=== PATIENT | female | born 1955 | race Caucasian/White ===

== ENCOUNTER → 2016-10-22 | Outpatient (CLI) | payer BC ==
[2016-10-22 11:51] LABS: Appearance,Urine Clear (Clear); Bilirubin,Urine Negative (Negative); Glucose,Urine (UA) Negative (Negative); Ketones,Urine Negative (Negative); Leukocyte Esterase,Urine Large (Negative); Mucus,Urine Rare /hpf; Nitrite,Urine Negative (Negative); Particle Count 3400; Protein,Urine Negative (Negative); RBC,Urine 4 /hpf (0-5); Specific Gravity,Urine 1.014 (1.001-1.035); Squamous Epithelial Cell,Urine 2 /hpf (0-4); UA Billing (MACRO vs. MICRO) MICRO; Urobilinogen,Urine <2.0 mg/dL (<2.0); WBC,Urine 8 /hpf (0-5)
== END | disposition home or self-care (01) ==
LOC: LABWHC1 10:38
PROVIDERS: ATTEND Internal Medicine Critical Care Medicine
DX: C50.919 Malignant neoplasm of unspecified site of unspecified female breast (principal); J45.909 Unspecified asthma, uncomplicated; N39.0 Urinary tract infection, site not specified
CPT/HCPCS: 81001; 87086

== ENCOUNTER → 2016-10-23 | Outpatient (CLI) | payer BC ==
[2016-10-23 07:37] LABS: Basophils % (A) 1 %; CH 35.3; CHCM 33.3; Eosinophils # (A) 0.1 k/uL (0-0.7); Eosinophils % (A) 2 %; HDW 2.11; HGB 15.1 gm/dL (11.4-16.0); Luc % (Auto) 2; Lymphocytes # (A) 0.7 k/uL (1.0-4.8); Lymphocytes % (A) 12 %; MCV 106.3 fL (80.0-100.0); Macrocytosis Moderate; Mean Platelet Volume 7.2; Monocytes # (A) 0.3 k/uL (0-1.0); Monocytes % (A) 6 %; Neutrophils # (A) 4.3 k/uL (1.3-7.7); Neutrophils % (A) 78 %; RBC 4.43 m/uL (3.80-5.40); RDW 13.2 % (11.5-15.5); WBC 5.6 k/uL (3.8-10.6); WBC (Perox) 5.54
[2016-10-23 08:43] LABS: Hemoglobin A1C 5.6 % (4.2-6.1)
[2016-10-23 08:56] LABS: ALT 30 U/L (9-52); AST 21 U/L (14-36); Alkaline Phosphatase 84 U/L (38-126); Anion Gap 8 mmol/L; Blood Urea Nitrogen 13 mg/dL (7-17); Calcium 9.4 mg/dL (8.4-10.2); Carbon Dioxide 28 mmol/L (22-30); Chloride 106 mmol/L (98-107); Glucose 99 mg/dL (74-99); Non-African American GFR(MDRD) >60 (>60 ml/min/1.73 sqM); Potassium 4.8 mmol/L (3.5-5.1); Sodium 142 mmol/L (137-145); Total Bilirubin 0.4 mg/dL (0.2-1.3); Total Protein 6.6 g/dL (6.3-8.2)
[2016-10-23 13:27] LABS: Cancer Anitgen 153 12.2 U/mL (<35.1)
== END | disposition home or self-care (01) ==
LOC: LABWHC1 06:48
PROVIDERS: ATTEND Internal Medicine Critical Care Medicine
DX: C50.919 Malignant neoplasm of unspecified site of unspecified female breast (principal); J45.909 Unspecified asthma, uncomplicated; N39.0 Urinary tract infection, site not specified
CPT/HCPCS: 36415; 80053; 82306; 83036; 84439; 84443; 85025; 86300

== ENCOUNTER → 2016-10-24 | Outpatient (CLI) | payer BC ==
--- NOTE | 2016-10-24 10:28 | XR ---
EXAMINATION TYPE: XR chest 2V DATE OF EXAM: 10/24/2016 HISTORY: C50.919 breast ca. REFERENCE: Previous study dated 07/05/2013. FINDINGS: The lungs are clear. Pleural spaces are clear. Heart size is normal. Lung volumes are promi nent.. IMPRESSION: PLEASE CORRELATE FOR COPD.
== END | disposition home or self-care (01) ==
LOC: RADXRMAIN 09:44
PROVIDERS: ATTEND Internal Medicine Hematology & Oncology
DX: C50.819 Malignant neoplasm of overlapping sites of unspecified female breast (principal); J45.21 Mild intermittent asthma with (acute) exacerbation
CPT/HCPCS: 71020

== ENCOUNTER → 2017-09-02 | Outpatient (CLI) | payer BC ==
--- NOTE | 2017-09-02 10:19 | XR ---
EXAMINATION TYPE: XR chest 2V DATE OF EXAM: 09/02/2017 COMPARISON: October 24, 2016 HISTORY: Shortness of breath TECHNIQUE: Frontal and lateral views of the chest are obtained. FINDINGS: Scattered senescent parenchymal changes noted. Hyperinflation compatible with COPD. No evidence for infiltrate. No evidence for atelectasis. Heart size is stable. Mediastinal structures are stable and grossly unremarkable. No evidence for hilar prominence. Degenerative changes dorsal spine. IMPRESSION: 1. No evidence for acute pulmonary disease.
== END | disposition home or self-care (01) ==
LOC: RADXRMAIN 09:44
PROVIDERS: ATTEND Internal Medicine Hematology & Oncology
DX: C50.819 Malignant neoplasm of overlapping sites of unspecified female breast (principal); R19.7 Diarrhea, unspecified; J45.21 Mild intermittent asthma with (acute) exacerbation
CPT/HCPCS: 71046

== ENCOUNTER → 2017-11-05 | Outpatient (CLI) | payer BC ==
--- NOTE | 2017-11-05 15:16 | BD ---
EXAMINATION TYPE: Axial Bone Density DATE OF EXAM: 11/05/2017 COMPARISON: NONE CLINICAL HISTORY: 61-year-old female postmenopausal screening without HRT Height: 5 FT 5 IN Weight: 112 FRAX RISK QUESTIONS: History of Fracture in Adulthood: YES Secondary Osteoporosis: 3. Menopause before 45: YES RISK FACTORS HISTORY OF: Hip Fracture (Right/Left): YES When: 02/2017 History of Wrist Fracture: YES When: 1975 Surgery to Spine/Hip(right/left)/Wrist (right/left): LT HIP When: 2017 Family History of Osteoporosis: YES Active: SOMEWHAT Postmenopausal woman: PART HYST AGE 38 MEDICATIONS: Additional Medications: SINGULAIR,PROAIR NEEDED, Additional History: EXAM MEASUREMENTS: Bone mineral densitometry was performed using the [employer] System. Bone mineral density as measured about the Lumbar spine is: ----- L1-L4(G/cm2): 0.963 T Score Values are as follows: ----- L2: -2.4 ----- L3: -2.0 ----- L4: -2.0 ----- L1-L4: -1.8 BASELINE Bone mineral density about the R hip (g/cm2): 0.724 T Score values are as follows: -----R Neck: -2.3 -----R Total: -2.4 BASELINE IMPRESSION: Osteopenia (T Score between -2.5 and -1). Note that measurements approach osteoporosis at the right h ip. There is slightly increased risk of fracture and the patient may be considered for treatment. Re-Screen 2-5 years. NOTE: T-SCORE=SD OF THE YOUNG ADULT MEAN.
== END ==
LOC: RADBDWWP 12:25
PROVIDERS: ATTEND Internal Medicine Hematology & Oncology
DX: C50.819 Malignant neoplasm of overlapping sites of unspecified female breast (principal); M85.80 Other specified disorders of bone density and structure, unspecified site
CPT/HCPCS: 77080

== ENCOUNTER → 2018-01-02 | Outpatient (CLI) | payer BC ==
[2018-01-02 08:01] LABS: HCT 46.1 % (34.0-46.0); HGB 15.4 gm/dL (11.4-16.0); MCH 33.4 pg (25.0-35.0); MCHC 33.5 g/dL (31.0-37.0); MCV 99.7 fL (80.0-100.0); Mean Platelet Volume 6.5; Platelet Count 359 k/uL (150-450); RBC 4.62 m/uL (3.80-5.40); RDW 12.5 % (11.5-15.5); WBC 4.2 k/uL (3.8-10.6)
[2018-01-02 08:08] LABS: ALT 18 U/L (9-52); AST 19 U/L (14-36); Albumin 3.8 g/dL (3.5-5.0); Alkaline Phosphatase 71 U/L (38-126); Anion Gap 6 mmol/L; Blood Urea Nitrogen 13 mg/dL (7-17); Calcium 9.5 mg/dL (8.4-10.2); Carbon Dioxide 28 mmol/L (22-30); Chloride 107 mmol/L (98-107); Glucose 101 mg/dL (74-99); Partial Thromboplastin Time 24.1 sec (22.0-30.0); Potassium 4.6 mmol/L (3.5-5.1); Sodium 141 mmol/L (137-145); Total Bilirubin 0.5 mg/dL (0.2-1.3); Total Protein 6.8 g/dL (6.3-8.2)
[2018-01-02 08:33] LABS: Appearance,Urine Clear (Clear); Bilirubin,Urine Negative (Negative); Blood,Urine Small (Negative); Color,Urine Yellow; Glucose,Urine (UA) Negative (Negative); Ketones,Urine Negative (Negative); Leukocyte Esterase,Urine Negative (Negative); Mucus,Urine Many /hpf; Nitrite,Urine Negative (Negative); PH, Urine 5.5 (5.0-8.0); Protein,Urine Negative (Negative); RBC,Urine 2 /hpf (0-5); Specific Gravity,Urine 1.018 (1.001-1.035); Squamous Epithelial Cell,Urine 1 /hpf (0-4); Urobilinogen,Urine <2.0 mg/dL (<2.0); WBC,Urine 2 /hpf (0-5)
== END | disposition home or self-care (01) ==
LOC: LABPAT 07:18
PROVIDERS: ATTEND Orthopaedic Surgery
DX: Z01.818 Encounter for other preprocedural examination (principal); Z01.812 Encounter for preprocedural laboratory examination
CPT/HCPCS: 36415; 80053; 81001; 85027; 85610; 85730; 87070; 93005

== ENCOUNTER 2018-01-13 05:34 | Inpatient (IN) | payer BC ==
[2018-01-06 08:22] VITALS: BMI 18.2
[~2018-01-13 05:34] MED LIST: ACETAMINOPHEN TAB 500 MG TAB PO ONE; MELOXICAM 7.5 MG TAB PO ONE; TRANEXAMIC ACID 1,000 MG in SODIUM CHLORIDE 0.9% 50 ML IVPB ONE; ceFAZolin IN SWFI 2 GM/20 ML SYRINGE IVP ONE
[2018-01-13] MEDS ORDERED: SCOPOLAMINE 1.5MG/72HR PATCH TRANSDERM ONE (05:38)
[2018-01-13] MEDS ORDERED: DEXAMETHASONE SOD PHOSPHATE 10 MG/ML 1 ML VIAL IV ONE (05:38)
[2018-01-13] MEDS ORDERED: ONDANSETRON 4 MG/2 ML VIAL IVP ONE (05:38)
[2018-01-13] MEDS ORDERED: LIDOCAINE 1% 20 ML VIAL (10MG/ML) FOR IV START INTRADERMA PRN (05:38)
[2018-01-13] MEDS ORDERED: HYDROmorphone 0.5 MG/0.5 ML SYRINGE IVP PRN (05:38)
[2018-01-13] MEDS ORDERED: MIDAZOLAM 2 MG/2 ML VIAL IV PRN (05:38)
[2018-01-13] MEDS: LACTATED RINGERS 1,000 ML IV SCH (06:23)
[2018-01-13] MEDS ORDERED: MIDAZOLAM 2 MG/2 ML VIAL ONE (06:56)
[2018-01-13] MEDS ORDERED: MAGNESIUM HYDROXIDE 2,400 MG/10 ML CUP PO PRN (06:56)
[2018-01-13] MEDS ORDERED: PROPOFOL 10 MG/ML 20 ML VIAL IV ONE (06:56)
[2018-01-13] MEDS ORDERED: HEPARIN SODIUM,PORCINE 10,000 UNIT/ML 1 ML VIAL ONE (06:56)
[2018-01-13] MEDS ORDERED: HYDROmorphone 1 MG/ML 1 ML SYRINGE IVP PRN ×3 (06:56)
[2018-01-13] MEDS ORDERED: fentaNYL (PF) 50 MCG/ML 2 ML AMP ONE (06:56)
[2018-01-13] MEDS ORDERED: NALOXONE 0.4 MG/ML 1 ML VIAL IV PRN (06:56)
[2018-01-13] MEDS ORDERED: HYDROcodone/APAP 5-325MG 1 EACH TAB PO PRN (06:56)
[2018-01-13] MEDS ORDERED: ONDANSETRON 4 MG/2 ML VIAL IVP PRN (06:56)
[2018-01-13] MEDS ORDERED: LIDOCAINE 1% INJ 10MG/ML (20 ML MDV) ONE (06:56)
[2018-01-13] MEDS ORDERED: DIAZEPAM 5 MG TAB PO PRN (06:56)
[2018-01-13] MEDS ORDERED: hydrOXYzine PAMOATE 25 MG CAP PO PRN (06:56)
[2018-01-13] MEDS ORDERED: SODIUM CHLORIDE 0.9% IRRIG 1,000 ML BTL IRRIGATION ONE (06:56)
[2018-01-13] MEDS ORDERED: ceFAZolin 3,000 MG in SODIUM CHLORIDE 0.9% IRRIGATIO 3,000 ML IRRIGATION ONE (07:34)
[2018-01-13] MEDS: ROPIVACAINE 246.25 MG, EPINEPHrine 0.5 MG, KETOROLAC 30 MG, cloNIDine HCL/PF 80 MCG, WA... MISCELLANE ONE ×10 (07:34→08:48)
[2018-01-13] MEDS ORDERED: LACTATED RINGERS 1,000 ML IV ONE (08:55)
[2018-01-13] MEDS ORDERED: RIVAROXABAN 10 MG TAB PO SCH (09:00)
--- NOTE | 2018-01-13 09:17 | FL ---
EXAMINATION TYPE: FL guidance operating room, XR Hip Limited LT DATE OF EXAM: 01/13/2018 CLINICAL HISTORY: Left hip back fracture with persistent pain after ORIF TECHNIQUE: Fluoroscopy. Limited intraoperative views left hip. COMPARISON: Pelvic and left hip x-ray November 03, 2017. FINDINGS: Fluoroscopic guidance was provided during total hip replacement with procedure performed leena Villa. A total of 43 seconds of fluoroscopic time was utilized during the procedure and 2 s pot fluoroscopic intraoperative frontal images are acquired. Images are acquired intraoperatively show satisfactory positioning of metallic hip prosthesis from fr ontal projection. IMPRESSION: As Above.
--- NOTE | 2018-01-13 09:33 | XR ---
EXAMINATION TYPE: XR Hip Limited LT DATE OF EXAM: 01/13/2018 CLINICAL HISTORY: Left hip pain and osteoarthritis. TECHNIQUE: Single AP portable view of left hip is obtained immediately postoperatively. COMPARISON: None. FINDINGS: Metallic hardware from left hip arthroplasty is seen and appears satisfactory in alignment and position. There is evidence of recent surgery with subcutaneous gas noted laterally. IMPRESSION: Metallic hardware from left hip arthroplasty is satisfactory in position.
[2018-01-13] MEDS: SODIUM CHLORIDE 0.9% 1,000 ML IV SCH ×2 (10:04→22:18)
[2018-01-13] MEDS ORDERED: ALBUTEROL NEBULIZED 2.5 MG/3 ML INHALATION PRN (10:43)
--- NOTE | 2018-01-13 10:43 | P.CONS ---
History of Present Illness - Reason for Consult Consult date: 01/13/18 Post-op pain - Chief Complaint L hip pain - History of Present Illness The patient is a 62 yo F with a PMH of breast ca s/p chemo and radiation (last session 02/2014), mild intermittent asthma, osteoporosis, and L hip fracture 2017, is s/p L hip total arthroplasty earlier today. She notes she is doing well and that her pain has been adequately controlled thus far and is currently a 3/10 at the L hip. She denied any other active complaints including fever, chills, cough, chest pain, SOB, nausea, vomiting, dizziness, abdominal pain, diarrhea, dysuria, visual changes, or headaches. Review of Systems Pertinent positives and negatives as discussed in HPI, a complete review of systems was performed and all other systems are negative. 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, pneumothorax History of Any Multi-Drug Resistant Organisms: None Reported Past Surgical History: Breast Surgery, Hysterectomy Additional Past Surgical History / Comment(s): bilateral mastectomy, ovarian cysts removed, chest tube, lt hip fx with surgery and 3 screws Past Anesthesia/Blood Transfusion Reactions: No Reported Reaction Smoking Status: Former smoker - Past Family History Father Family Medical History: Pulmonary Embolus Additional Family Medical History / Comment(s): loi PE Mother Family Medical History: Cancer Brother(s) Family Medical History: Cancer Medications and Allergies Home Medications Medication Instructions Recorded Confirmed Type Albuterol Sulfate [Proair Hfa] 1 - 2 puff INHALATION RT-Q6H PRN 11/03/17 History Carboxymethylcellulose Sodium 1 drop BOTH EYES QID PRN 11/03/17 01/13/18 History [Refresh Tears] Montelukast [Singulair] 10 mg PO HS 11/03/17 01/13/18 History Alendronate Sodium [Fosamax] 70 mg PO SA 01/06/18 01/13/18 History Glucosamine Sulfate 500 mg PO HS 01/06/18 01/13/18 History Allergies Allergy/AdvReac Type Severity Reaction Status Date / Time aspirin Allergy GI Verified 01/13/18 10:03 upset/RASH bee venom protein (honey bee) Allergy Unknown Verified 01/13/18 10:03 influenza virus vaccine, Allergy Rash/Hives Verified 01/13/18 10:03 specific [influenza virus vacc,specific] tetracycline Allergy GI Verified 01/13/18 10:03 UPSET/RASH Physical Exam Vitals: Vital Signs Temp Pulse Resp BP Pulse Ox 01/13/18 09:15 66 16 116/56 99 01/13/18 08:57 97.1 F L 75 14 98/49 98 01/13/18 06:10 98.2 F 88 16 145/67 98 Intake and Output 01/12/18 01/13/18 01/13/18 22:59 06:59 14:59 Intake Total 200 901 Output Total 50 Balance 200 851 Intake: IV 200 901 Output: Estimated Blood Loss 50 General: [non toxic], [no distress], [appears at stated age], [normal weight] Derm: [no unusual rashes/lesions] [no unusual ecchymoses], [warm], [dry] Head: [atraumatic], [normocephalic], [symmetric] Eyes: [EOMI], [no lid lag], [anicteric sclera], [pupils equal round reactive to light] ENT: [Nose and ears atraumatic], [no thrush], [no pharyngeal erythema] Neck: [No thyromegaly], [no cervical lymphadenopathy], [trachea midline], [ supple] Mouth: [no lip lesion], [mucus membranes moist] Cardiovascular: [S1S2 reg], [no murmur], [positive posterior tibial pulse bilateral], [no edema], [capillary refill less than 2 seconds] Lungs: [CTA bilateral], [no rhonchi, no rales] , [no accessory muscle use] Abdominal: [soft], [ nontender to palpation], [no guarding], [no appreciable organomegaly], [normal bowel sounds] Ext: [no gross muscle atrophy], [muscle strength 5 out of 5 in all extremities except LLE 3/5 due to pain], [no contractures], Clean dressing over L hip Neuro: [ CN II-XI grossly intact], [light touch intact all 4 extremities], [ finger to nose within normal limits], Psych: [Alert], [oriented], [appropriate affect] Assessment and Plan Assessment: S/p total L hip arthroplasty - Care as per Orthopedic team Post-operative pain - C/w [place] and Dilaudid prn - Bowel regimen - Xarelto for prophylaxis Mild intermittent asthma - C/w Albuterol prn DVT/GI prophy - Xarelto - No indication for GI proph
[2018-01-13] MEDS: ceFAZolin IN SWFI 2 GM/20 ML SYRINGE IVP SCH ×2 (15:52→22:53)
--- NOTE | 2018-01-13 16:08 | P.OP ---
Date of Procedure: 01/13/18 Preoperative Diagnosis: 1. Severe osteoarthritis left hip 2. Status post left hip percutaneous pinning Postoperative Diagnosis: 1. Severe osteoarthritis left hip 2. Status post left hip percutaneous pinning Procedure(s) Performed: 1. Removal of hardware left hip 2. Left total hip arthroplasty with a direct anterior approach Implants: Hung and nephew Polarstem size 4 standard Hung [employer] Nephew R3, 3 hole acetabular shell, 52 mm Hung [employer] Nephew reflection 6.5 mm cancellus screw, 20 mm 2 Hung [employer] Nephew R3, XLPE 20 acetabular liner Hung [employer] Nephew Oxinium femoral head 36 m, +0 All components were press-fit. The articulation is Oxinium on polyethylene. Anesthesia: spinal Surgeon: Haim Villa Truck Chauffeur #1: Candelaria Hilario Estimated Blood Loss (ml): 50 Pathology: other (Femoral head) Condition: stable Disposition: PACU Indications for Procedure: This is a 62-year-old female that had a percutaneous pinning of her left hip for femoral neck fracture while in [place] earlier this year. She subsequently developed significant osteoarthritis of the left hip. After failure of conservative treatment we discussed the surgical and nonsurgical treatment options at length. Patient wishes to proceed with a total hip arthroplasty with a direct anterior approach. Complications specific to this procedure were discussed at length, including but not limited to infection, leg length discrepancy, dislocation, and nerve injury. Patient is aware of all these complications and informed consent was obtained Operative Findings: The operative findings are consistent with severe osteoarthritis of the left hip and retained hardware. Description of Procedure: Patient was seen and evaluated in the preoperative area, consent was reviewed, and the surgical site was marked with a skin marker. Patient was then brought to the operating room and given prophylactic antibiotics intravenously. 1 g of Tranexamic acid was also given. A spinal anesthetic was administered by the anesthesia department. The patient was then placed on the [place] table with the bony prominences well-padded. The hip area was then prepped and draped in usual sterile fashion. A universal timeout was then performed, which confirmed the patient's name, surgical site, ALLERGIES, and procedure being performed. Next the incision site was located at 1 cm distal and 1 cm lateral to the anterior superior iliac spine. The skin and subcutaneous tissues were sharply incised. Incision was carefully dissected down to the fascia overlying the tensor fascia heena muscle. This fascia was then incised in line with the incision. Next, using blunt finger dissection, the tensor fascia heena muscle was dissected off its investing fascia. The muscle was then carefully retracted laterally with a cobra retractor over the lateral neck of the femur. Next, the circumflex vessels were identified and cauterized using the AquaMantis device. The anterior hip capsule was then exposed. The capsule was then opened and an inverted T fashion. Cobra retractors were then placed intracapsularly. The proximal femur was then visualized. The 3 cannulated screws were then located on the lateral aspect of the proximal femur, and were removed with appropriate screwdriver without incident. The femoral neck was then osteotomized appropriate level above the lesser trochanter. Small amount of traction was placed with the [place] table. A small wedge of bone was then removed from the remaining femoral head. Next, using a corkscrew femoral head was easily removed from the acetabulum. On gross visual inspection, the femoral head had complete loss of articular cartilage in multiple periarticular osteophytes. Attention was then turned to the acetabulum. the acetabulum was exposed and any remaining labrum was excised. Sequential reaming of the acetabulum was performed using fluoroscopic guidance. When the appropriate size was reached, a trial was then placed. The position and fit of the trial was checked with fluoroscopy. The trial was then removed. Then, using fluoroscopic guidance, the final implant was impacted at 20 of anteversion and 40 of abduction, and fully seated in the acetabulum. 2 screws were then placed in the acetabulum. Again fluoroscopy was used to check position of the screws. Next, the liner was then impacted, with a 20 elevated liner located in the anterior superior quadrant. Component locking was confirmed. Attention was then directed to the femur. With the aid of the [place] table, the femur was externally rotated to approximately 130, extended, and abducted under the opposite leg. A side hook was then placed under the proximal femur, and the side hook elevator was used to elevate the proximal femur. Retractors were then placed. A capsular release was performed, as well as a release of the conjoined tendon, which afforded excellent visualization of the proximal femur. Next, a box osteotome was used to lateralize the proximal femur. A bench hand was then used to locate the femoral canal. Sequential broaching was then performed with appropriate size which afforded excellent fixation in the proximal femur. A trial was then placed with appropriate head and neck, and the hip was gently reduced with the aid of the [place] table. Fluoroscopy was then used to check position of the components, as well as to ensure equal leg lengths. The hip was then gently dislocated and the trials were then removed. Final implants were then impacted and the hip was again reduced. Final fluoroscopic x-rays confirmed that the components were in anatomic position, as well as equal leg lengths. The hip was also taken through range of motion, and found to be stable. The hip was then copiously irrigated with antibiotic solution with pulsatile lavage. The hip was then irrigated with Irrisept solution. The soft tissues were then injected with a ropivacaine solution, which consisted of 246.25 mg of ropivacaine, 0.5 mg of epinephrine, 30 mg of Toradol, 80 g of clonidine, and 48.45 mL of sterile water, for a total of 100 mL of fluid injected. A second dose of 1 g of Tranexamic acid was also given. the fascia was then closed with 2-0 strata fix suture. The subcutaneous tissue was closed with 3-0 Vicryl. The subcuticular tissue was closed with 3-0 strata fix suture. The skin was then closed with Dermabond glue and a sterile silver dressing. The patient was then transferred to the recovery room in stable condition. The assistant field hockey coach HECTOR Trotter was required due to the complexity of surgery, and the need for skilled certified surgical assistant for positioning, draping, exposure, retraction, and closure of the wound.
[2018-01-13] MEDS: HYDROcodone/APAP 5-325MG 1 EACH TAB PO PRN (17:50)
[2018-01-13] MEDS: RIVAROXABAN 10 MG TAB PO SCH (17:57)
[2018-01-13] MEDS ORDERED: SENNOSIDES-DOCUSATE SODIUM 1 EACH TAB PO SCH (21:00)
[2018-01-14] MEDS: HYDROcodone/APAP 5-325MG 1 EACH TAB PO PRN ×3 (00:27→10:52)
[2018-01-14] MEDS: LACTATED RINGERS 1,000 ML IV SCH (05:37)
[2018-01-14] MEDS ORDERED: RIVAROXABAN 10 MG TAB PO SCH (07:00)
[2018-01-14 07:37] VITALS: BP 107/68; PULSE 77; RESP 18; TEMP 98.3
[2018-01-14 08:50] LABS: Basophils % (A) 1 %; Eosinophils # (A) 0.1 k/uL (0-0.7); Eosinophils % (A) 2 %; HCT 35.5 % (34.0-46.0); Lymphocytes % (A) 21 %; MCH 33.1 pg (25.0-35.0); MCHC 32.9 g/dL (31.0-37.0); MCV 100.4 fL (80.0-100.0); Mean Platelet Volume 6.6; Monocytes # (A) 0.5 k/uL (0-1.0); Monocytes % (A) 10 %; Neutrophils # (A) 3.1 k/uL (1.3-7.7); Neutrophils % (A) 64 %; Platelet Count 275 k/uL (150-450); RBC 3.53 m/uL (3.80-5.40); RDW 12.7 % (11.5-15.5); WBC 4.9 k/uL (3.8-10.6)
[2018-01-14 08:51] LABS: HGB 11.7 gm/dL (11.4-16.0)
--- NOTE | 2018-01-14 09:06 | P.DS ---
Providers Date of admission: 01/13/18 05:34 Expected date of discharge: 01/14/18 Attending physician: Haim Villa Consults: 01/13/18 06:56 Consult Physician Routine Consulting Provider: Tommie Suazo Consult Reason/Comments: medical management Do you want consulting provider notified?: Yes 01/13/18 09:41 Consult Physician Routine Consulting Provider: Ivania Strange Consult Reason/Comments: Medical management Do you want consulting provider notified?: Yes Primary care physician: Tommie Suazo - Discharge Diagnosis(es) (1) S/P total hip arthroplasty Current Visit: Yes Status: Acute (2) S/P hardware removal Current Visit: Yes Status: Acute Hospital Course: This is a 62-year-old female who underwent percutaneous pinning of her left hip for femoral neck fracture this year in [place] and then developed degenerative arthritis of the left hip . The patient presents for evaluation. After discussion and consideration patient elects to proceed with removal of hardware left hip and left total hip arthroplasty. The patient is seen preoperatively by Dr. Villa and medically cleared for surgery by their primary care physician. Patient is admitted to [facility] on 01/13/2018 for removal of hardware left hip and left total hip arthroplasty. The procedures performed without complication or sequelae. The patient is doing well postoperatively. Labs and vital signs are stable on day of discharge. On day of discharge patient's hip incision is healing well. There is minimal erythema. There is no drainage noted at this time. There is minimal soft tissue swelling to the hip and thigh. Patient has full foot and ankle motion without difficulty or pain. Neurovascular status to the left lower extremity is intact. Patient is discharged home in good condition. Please see med rec for accurate list of home medications. Plan - Discharge Summary Discharge Rx Participant: No New Discharge Prescriptions: New HYDROcodone/APAP 5-325MG [[place] 5-325] 1 - 2 tab PO Q4-6H PRN #84 tab PRN Reason: Pain Rivaroxaban [Xarelto] 10 mg PO DAILY #30 tab Sennosides [Senokot] 1 tab PO BID #60 tablet No Action Albuterol Sulfate [Proair Hfa] 1 - 2 puff INHALATION RT-Q6H PRN PRN Reason: Shortness Of Breath Montelukast [Singulair] 10 mg PO HS Carboxymethylcellulose Sodium [Refresh Tears] 1 drop BOTH EYES QID PRN PRN Reason: DRY EYES Glucosamine Sulfate 500 mg PO HS Alendronate Sodium [Fosamax] 70 mg PO SA Discharge Medication List Albuterol Sulfate [Proair Hfa] 1 - 2 puff INHALATION RT-Q6H PRN 11/03/17 [ History] Carboxymethylcellulose Sodium [Refresh Tears] 1 drop BOTH EYES QID PRN 11/03/17 [History] Montelukast [Singulair] 10 mg PO HS 11/03/17 [History] Alendronate Sodium [Fosamax] 70 mg PO SA 01/06/18 [History] Glucosamine Sulfate 500 mg PO HS 01/06/18 [History] HYDROcodone/APAP 5-325MG [[place] 5-325] 1 - 2 tab PO Q4-6H PRN #84 tab 01/14/18 [ Rx] Rivaroxaban [Xarelto] 10 mg PO DAILY #30 tab 01/14/18 [Rx] Sennosides [Senokot] 1 tab PO BID #60 tablet 01/14/18 [Rx] Follow up Appointment(s)/Referral(s): Haim Villa DO [Doctor of Osteopathic Medicine] - 2 Weeks Activity/Diet/Wound Care/Special Instructions: Weightbearing as tolerated with walker. Leave dressing intact. Dressing may be removed by home care nurse in 10 days. May shower with dressing on. Please follow-up with [facility] in 2 weeks and call with any questions or concerns, . Discharge Disposition: HOME WITH HOME HEALTH SERVICES
[2018-01-14] MEDS: RIVAROXABAN 10 MG TAB PO SCH (09:27)
== END 2018-01-14 10:59 | disposition home or self-care (01) | DRG 470 ==
LOC: 2ORMAIN 05:34 → 4SSUR 09:25
PROVIDERS: ADMIT Orthopaedic Surgery; ATTEND Orthopaedic Surgery
PROC: 0SRB06A Replacement of Left Hip Joint with Oxidized Zirconium on Polyethylene Synthetic Substitute, Uncemented, Open Approach (ICD-10-PCS; principal; 2018-01-13 07:00)
PROC: 0QP704Z Removal of Internal Fixation Device from Left Upper Femur, Open Approach (ICD-10-PCS; principal; 2018-01-13 07:00)
DX: M16.12 Unilateral primary osteoarthritis, left hip (principal); J45.20 Mild intermittent asthma, uncomplicated; M81.0 Age-related osteoporosis without current pathological fracture; Z87.81 Personal history of (healed) traumatic fracture; Z79.83 Long term (current) use of bisphosphonates; Z85.3 Personal history of malignant neoplasm of breast; Z87.891 Personal history of nicotine dependence; Z90.13 Acquired absence of bilateral breasts and nipples; Z90.710 Acquired absence of both cervix and uterus; Z92.21 Personal history of antineoplastic chemotherapy; Z92.3 Personal history of irradiation; Z88.6 Allergy status to analgesic agent; Z88.1 Allergy status to other antibiotic agents
CPT/HCPCS: 73501; 85025; 86850; 86891; 86900; 86901; 88305; 88311

== ENCOUNTER → 2018-02-04 | Outpatient (CLI) | payer BC ==
[2018-02-04 12:03] LABS: Basophils % (A) 1 %; Eosinophils # (A) 0.2 k/uL (0-0.7); Eosinophils % (A) 5 %; HCT 38.5 % (34.0-46.0); HGB 12.1 gm/dL (11.4-16.0); Lymphocytes % (A) 20 %; MCH 31.4 pg (25.0-35.0); MCHC 31.6 g/dL (31.0-37.0); MCV 99.3 fL (80.0-100.0); Monocytes # (A) 0.5 k/uL (0-1.0); Monocytes % (A) 9 %; Neutrophils # (A) 3.3 k/uL (1.3-7.7); Neutrophils % (A) 64 %; Platelet Count 540 k/uL (150-450); RBC 3.87 m/uL (3.80-5.40); WBC 5.2 k/uL (3.8-10.6)
[2018-02-04 14:43] LABS: Erythrocyte Sedimentation Rate 40 mm/hr (0-20)
== END | disposition home or self-care (01) ==
LOC: LABWHC1 11:10
PROVIDERS: ATTEND Orthopaedic Surgery
DX: M25.552 Pain in left hip (principal); Z47.1 Aftercare following joint replacement surgery; Z96.642 Presence of left artificial hip joint
CPT/HCPCS: 36415; 85025; 85652; 86140

== ENCOUNTER → 2018-09-08 | Outpatient (CLI) | payer BC ==
--- NOTE | 2018-09-08 09:35 | XR ---
EXAMINATION TYPE: XR chest 2V DATE OF EXAM: 09/08/2018 COMPARISON: Prior chest x-ray September 02, 2017. HISTORY: Malignant neoplasm of breast. TECHNIQUE: Frontal and lateral views of the chest are obtained. FINDINGS: Underlying emphysematous changes not excluded. There is no focal air space opacity, pleural effusion, or pneumothorax seen. The cardiac silhouette size is within normal limits. Stable slight scoliotic curvature. Absent bilateral breast shadows likely product of prior bilateral mastectomy unc hanged from prior. IMPRESSION: No acute cardiopulmonary process. No significant change from prior.
== END | disposition home or self-care (01) ==
LOC: RADXRMAIN 09:13
PROVIDERS: ATTEND Internal Medicine Hematology & Oncology
DX: C50.819 Malignant neoplasm of overlapping sites of unspecified female breast (principal); R19.7 Diarrhea, unspecified; J45.21 Mild intermittent asthma with (acute) exacerbation
CPT/HCPCS: 71046

== ENCOUNTER 2019-10-18 15:12 | Emergency (ER) | payer MEDICARE, BC ==
--- NOTE | 2019-10-18 16:28 | ED ---
General Adult HPI - General Chief complaint: Extremity Problem,Nontraumatic Stated complaint: Positive DVT, Abn US Time Seen by Provider: 10/18/19 15:51 Source: patient Mode of arrival: ambulatory Limitations: no limitations - History of Present Illness Initial comments: Dictation was produced using PROTE[employer] dictation software. please excuse any gram matical, word or spelling errors. This patient was cared for during a federal and state declared state of emergency secondary to Covid 19 Chief Complaint: 63-year-old female sent to the emergency department for abnormal venous duplex ultrasound of the left leg History of Present Illness: 63-year-old female she had an outpatient DVT study of the left lower extremity. Patient was told to come to the emergency department after her films were reviewed. She was told that she has a left lower extremity DVT. Patient had left calf pain for the last several days. Patient states that she felt like her symptoms started when she was doing physical activity. She states she hurt herself after a fall. She's been having Pain when she's been trying massage. She went to see her orthopedic surgeon who ordered a DVT study. Patient denies any chest pain. No shortness of breath. She has history of breast cancer. Several years ago she had completed chemotherapy for breast mass. She reports she has never been on anticoagulation medications in the past. Patient has family history of DVT reports that one of her immediate family members from bilateral pulmonary emboli. Patient has any history of GI bleed. She has no headache. No history of intracranial bleed. The ROS documented in this emergency department record has been reviewed and confirmed by me. Those systems with pertinent positive or negative responses have been documented in the HPI. All other systems are other negative and/or noncontributory. PHYSICAL EXAM: General Impression: Alert and oriented x3, not in acute distress HEENT: Normocephalic atraumatic, extra-ocular movements intact, pupils equal and reactive to light bilaterally, mucous membranes moist. Cardiovascular: Heart regular rate and rhythm Chest: Able to complete full sentences, no retractions, no tachypnea Abdomen: abdomen soft, non-tender, non-distended, no organomegaly Musculoskeletal: Pulses present and equal in all extremities, no peripheral edema Motor: no focal deficits noted Neurological: CN II-XII grossly intact, no focal motor or sensory deficits noted Skin: Intact with no visualized rashes Psych: Normal affect and mood ED course: 63-year-old female presents with positive DVT study of the left lower extremity. Upon arrival are within acceptable limits. No clinical suspicion of pulmonary emboli. Laboratory evaluation was obtained. No leukocytosis. Hemoglobin stable. Coag panel is negative. Metabolic panel is negative. Ultrasound was reviewed. Brain to images patient has a distal extremity DVT. Patient prescription for L it was. Return parameters discussed per she is advised to follow-up with primary care physician for outpatient management of deep venous thrombosis. Patient is agreeable with plan. Sunitaer return to the emergency department especially if she develops palpitations, chest pain, shortness of breath or any signs of bleeding including headache, dark or bloody stools EKG interpretation: Ventricular rate 65, normal sinus rhythm,. Interval 146, QRS 104, QTC 436. No ID prolongation, no QTC prolongation, no ST or T-wave changes noted. EKG compared to 01/02/2018 showing no changes. Overall, this EKG is unremarkable - Related Data Home Medications Medication Instructions Recorded Confirmed Albuterol Sulfate [Proair Hfa] 1 - 2 puff INHALATION RT-Q6H PRN 11/03/17 10/18/19 Montelukast [Singulair] 10 mg PO HS 11/03/17 10/18/19 Alendronate Sodium [Fosamax] 70 mg PO SA 01/06/18 10/18/19 Acetaminophen Tab [Tylenol Tab] 1,000 mg PO Q6HR PRN 10/18/19 10/18/19 Ciclopirox Olamine [Ciclopirox 1 applic TOPICAL DAILY PRN 10/18/19 10/18/19 0.77% Topical Susp.] EPINEPHrine (Auto Inject) [Epipen] 0.3 mg IM ONCE PRN 10/18/19 10/18/19 Lipase/Protease/Amylase [Creon Dr 24,000 units PO DAILY PRN 10/18/19 10/18/19 12,000 Units Capsule] Previous Rx's Medication Instructions Recorded Apixaban [Eliquis Starter Pack 0 mg PO DIRECTED 30 Days #1 pack 10/18/19 (for VTE)] HYDROcodone/APAP 5-325MG [[place] 1 tab PO Q6HR PRN 3 Days #12 tab 10/18/19 5-325] Allergies Allergy/AdvReac Type Severity Reaction Status Date / Time aspirin Allergy GI Verified 10/18/19 16:33 upset/RASH bee venom protein (honey bee) Allergy Unknown Verified 10/18/19 16:33 influenza virus vaccine, Allergy Rash/Hives Verified 10/18/19 16:33 specific [influenza virus vacc,specific] tetracycline Allergy GI Verified 10/18/19 16:33 UPSET/RASH Review of Systems ROS Statement: Those systems with pertinent positive or pertinent negative responses have been documented in the HPI. ROS Other: All systems not noted in ROS Statement are negative. 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 hepatitis in 70's, pneumothorax History of Any Multi-Drug Resistant Organisms: None Reported Past Surgical History: Breast Surgery, Hysterectomy Additional Past Surgical History / Comment(s): bilateral mastectomy, ovarian cysts removed, chest tube Past Anesthesia/Blood Transfusion Reactions: No Reported Reaction Past Psychological History: No Psychological Hx Reported Past Alcohol Use History: Occasional Past Drug Use History: Marijuana - Past Family History Father Family Medical History: Pulmonary Embolus Additional Family Medical History / Comment(s): loi PE Mother Family Medical History: Cancer Brother(s) Family Medical History: Cancer General Exam Limitations: no limitations Course Vital Signs 10/18/19 15:33 Temperature 98.0 F Pulse Rate 61 Respiratory 16 Rate Blood Pressure 142/88 O2 Sat by Pulse 100 Oximetry Medical Decision Making - Lab Data Result diagrams: 10/18/19 17:33 10/18/19 16:31 Lab Results 10/18/19 10/18/19 10/18/19 Range/Units 16:31 16:31 17:33 WBC 5.4 (3.8-10.6) k/uL RBC 4.49 (3.80-5.40) m/uL Hgb 15.1 (11.4-16.0) gm/dL Hct 45.0 (34.0-46.0) % MCV 100.1 H (80.0-100.0) fL MCH 33.7 (25.0-35.0) pg MCHC 33.7 (31.0-37.0) g/dL RDW 12.4 (11.5-15.5) % Plt Count 232 (150-450) k/uL Neutrophils % 61 % Lymphocytes % 23 % Monocytes % 7 % Eosinophils % 6 % Basophils % 1 % Neutrophils # 3.3 (1.3-7.7) k/uL Lymphocytes # 1.2 (1.0-4.8) k/uL Monocytes # 0.4 (0-1.0) k/uL Eosinophils # 0.3 (0-0.7) k/uL Basophils # 0.1 (0-0.2) k/uL PT 9.5 (9.0-12.0) sec INR 0.9 (<1.2) APTT 22.1 (22.0-30.0) sec Sodium 138 (137-145) mmol/L Potassium 4.2 (3.5-5.1) mmol/L Chloride 106 (98-107) mmol/L Carbon Dioxide 24 (22-30) mmol/L Anion Gap 8 mmol/L BUN 14 (7-17) mg/dL Creatinine 0.61 (0.52-1.04) mg/dL Est GFR (CKD-EPI)AfAm >90 (>60 ml/min/1.73 sqM) Est GFR (CKD-EPI)NonAf >90 (>60 ml/min/1.73 sqM) Glucose 87 (74-99) mg/dL Calcium 9.0 (8.4-10.2) mg/dL Total Bilirubin 0.5 (0.2-1.3) mg/dL AST 26 (14-36) U/L ALT 16 (4-34) U/L Alkaline Phosphatase 68 (38-126) U/L Total Protein 6.9 (6.3-8.2) g/dL Albumin 4.3 (3.5-5.0) g/dL Disposition Clinical Impression: DVT (deep venous thrombosis) Disposition: HOME SELF-CARE Condition: Good Instructions (If sedation given, give patient instructions): Deep Vein Thrombosis (ED) Prescriptions: Apixaban [Eliquis Starter Pack (for VTE)] 0 mg PO DIRECTED 30 Days #1 pack HYDROcodone/APAP 5-325MG [[place] 5-325] 1 tab PO Q6HR PRN 3 Days #12 tab PRN Reason: Severe Pain Is patient prescribed a controlled substance at d/c from ED?: No Referrals: Tommie Suazo MD [Primary Care Provider] - 1-2 days Time of Disposition: 17:53
[2019-10-18 16:52] LABS: ALT 16 U/L (4-34); AST 26 U/L (14-36); African American GFR (CKD) >90 (>60 ml/min/1.73 sqM); Albumin 4.3 g/dL (3.5-5.0); Alkaline Phosphatase 68 U/L (38-126); Anion Gap 8 mmol/L; Blood Urea Nitrogen 14 mg/dL (7-17); Carbon Dioxide 24 mmol/L (22-30); Chloride 106 mmol/L (98-107); Glucose 87 mg/dL (74-99); Non-African American GFR(CKD) >90 (>60 ml/min/1.73 sqM); Potassium 4.2 mmol/L (3.5-5.1); Sodium 138 mmol/L (137-145); Total Bilirubin 0.5 mg/dL (0.2-1.3); Total Protein 6.9 g/dL (6.3-8.2)
[2019-10-18 16:58] LABS: INR 0.9 (<1.2); Partial Thromboplastin Time 22.1 sec (22.0-30.0); Prothrombin Time 9.5 sec (9.0-12.0)
[2019-10-18 17:44] LABS: Basophils # (A) 0.1 k/uL (0-0.2); Basophils % (A) 1 %; Eosinophils # (A) 0.3 k/uL (0-0.7); Eosinophils % (A) 6 %; HGB 15.1 gm/dL (11.4-16.0); Lymphocytes # (A) 1.2 k/uL (1.0-4.8); Lymphocytes % (A) 23 %; MCH 33.7 pg (25.0-35.0); MCHC 33.7 g/dL (31.0-37.0); MCV 100.1 fL (80.0-100.0); Mean Platelet Volume 7.3; Monocytes # (A) 0.4 k/uL (0-1.0); Monocytes % (A) 7 %; Neutrophils # (A) 3.3 k/uL (1.3-7.7); Neutrophils % (A) 61 %; Platelet Count 232 k/uL (150-450); RBC 4.49 m/uL (3.80-5.40); RDW 12.4 % (11.5-15.5); WBC 5.4 k/uL (3.8-10.6)
[2019-10-18 18:07] VITALS: BP 141/74; PULSE 73; RESP 18; TEMP 98.2
== END 2019-10-18 18:08 | disposition home or self-care (01) ==
LOC: EC 15:12
DX: I82.402 Acute embolism and thrombosis of unspecified deep veins of left lower extremity (principal); J45.909 Unspecified asthma, uncomplicated; M19.90 Unspecified osteoarthritis, unspecified site; Z88.1 Allergy status to other antibiotic agents; Z88.6 Allergy status to analgesic agent; Z88.7 Allergy status to serum and vaccine; Z91.030 Bee allergy status; Z83.2 Family history of diseases of the blood and blood-forming organs and certain disorders involving the immune mechanism; Z85.3 Personal history of malignant neoplasm of breast; Z92.21 Personal history of antineoplastic chemotherapy; Z90.13 Acquired absence of bilateral breasts and nipples
CPT/HCPCS: 36415; 80053; 85025; 85610; 85730; 93005; 99283

== ENCOUNTER → 2019-10-18 | Outpatient (CLI) | payer MEDICARE, BC ==
--- NOTE | 2019-10-18 18:10 | US ---
EXAMINATION TYPE: US venous doppler duplex LE LT DATE OF EXAM: 10/18/2019 2:59 PM COMPARISON: NONE CLINICAL HISTORY: 63-year-old female Left lower; I80.9 Phlebitis and thrombophlebitis. Pt states left calf/knee pain SIDE PERFORMED: Left TECHNIQUE: The lower extremity deep venous system is examined utilizing real time linear array sonog mann with graded compression, doppler sonography and color-flow sonography. FINDINGS: VESSELS IMAGED: External Iliac Vein (EIV) Common Femoral Vein Deep Femoral Vein Greater Saphenous Vein * Femoral Vein Popliteal Vein Small Saphenous Vein * Proximal Calf Veins (* superficial vessels) Left Leg: Positive for DVT within posterior tibial veins Results called to Candelaria at Dr's office at time of exam IMPRESSION: Exam positive for DVT within the posterior tibial veins of the left upper calf.
== END | disposition home or self-care (01) ==
LOC: RADUSWWP 14:34
PROVIDERS: ATTEND Orthopaedic Surgery
DX: I82.442 Acute embolism and thrombosis of left tibial vein (principal)

== ENCOUNTER → 2019-10-26 | Outpatient (CLI) | payer MEDICARE, BC ==
[2019-10-26 20:57] LABS: Cardiolipin Ab IgG Interp NEGATIVE (NEGATIVE); Cardiolipin Ab IgM Interp NEGATIVE (NEGATIVE); Cardiolipin IgA Antibody 0.6 U/mL; Cardiolipin IgM Antibody 1.4 U/mL
[2019-10-27 04:41] LABS: INR 0.95 (0.90-1.11); Partial Thromboplastin Time 27.3 sec (24.7-29.9); Prothrombin Time 10.2 sec (9.9-11.9)
[2019-10-27 11:29] LABS: Protein S Antigen 109 % (50 - 140)
[2019-10-27 12:23] LABS: APTT 36 Sec(s) (<43); DRVVT 1:1 Mix 47 Sec(s) (<44); DRVVT Confirmation Negative (Negative); Dilute Russell Viper Venom 55 Sec(s) (<44)
== END | disposition home or self-care (01) ==
LOC: LABWHC1 10:28
PROVIDERS: ATTEND Internal Medicine Critical Care Medicine
DX: I82.409 Acute embolism and thrombosis of unspecified deep veins of unspecified lower extremity (principal)
CPT/HCPCS: 36415; 85300; 85303; 85305; 85610; 85613; 85730; 86147

== ENCOUNTER → 2020-01-10 | Outpatient (CLI) | payer MEDICARE, BC ==
--- NOTE | 2020-01-10 15:04 | US ---
EXAMINATION TYPE: US venous doppler duplex LE LT DATE OF EXAM: 01/10/2020 2:31 PM COMPARISON: NONE CLINICAL HISTORY: I82.409 DVT LOWER EXT seen in September SIDE PERFORMED: Left TECHNIQUE: The lower extremity deep venous system is examined utilizing real time linear array sonog mann with graded compression, doppler sonography and color-flow sonography. VESSELS IMAGED: Common Femoral Vein Deep Femoral Vein Greater Saphenous Vein * Femoral Vein Popliteal Vein Small Saphenous Vein * Proximal Calf Veins (* superficial vessels) Posterior tib veins Left Leg: Negative for DVT IMPRESSION: Grayscale, color doppler, spectral doppler imaging performed of the deep veins of the lo wer extremities. There is normal flow, compressibility, vascular waveforms.
== END | disposition home or self-care (01) ==
LOC: RADUSWWP 13:54
PROVIDERS: ATTEND Internal Medicine Critical Care Medicine
DX: I82.402 Acute embolism and thrombosis of unspecified deep veins of left lower extremity (principal); Z88.1 Allergy status to other antibiotic agents; Z88.5 Allergy status to narcotic agent; Z88.6 Allergy status to analgesic agent

== ENCOUNTER 2020-08-17 14:01 | Emergency (ER) | payer MEDICARE, BC ==
[2020-08-17 14:35] VITALS: RESP 18; TEMP 98.6
[2020-08-17] MEDS ORDERED: MORPHINE SULFATE 4 MG/ML SYRINGE IVP STA (14:44)
[2020-08-17] MEDS ORDERED: HYDROmorphone 0.5 MG/0.5 ML SYRINGE IVP STA (15:23)
[2020-08-17 15:47] LABS: Basophils % (A) 1 %; Eosinophils # (A) 0.1 k/uL (0-0.7); Eosinophils % (A) 1 %; HCT 42.1 % (34.0-46.0); HGB 14.8 gm/dL (11.4-16.0); Lymphocytes # (A) 0.7 k/uL (1.0-4.8); Lymphocytes % (A) 10 %; MCH 35.1 pg (25.0-35.0); MCHC 35.2 g/dL (31.0-37.0); MCV 99.6 fL (80.0-100.0); Monocytes # (A) 0.4 k/uL (0-1.0); Monocytes % (A) 6 %; Neutrophils # (A) 5.9 k/uL (1.3-7.7); Neutrophils % (A) 82 %; Platelet Count 265 k/uL (150-450); RBC 4.23 m/uL (3.80-5.40); RDW 12.2 % (11.5-15.5); WBC 7.2 k/uL (3.8-10.6)
[2020-08-17 15:55] LABS: African American GFR (CKD) >90 (>60 ml/min/1.73 sqM); Anion Gap 9 mmol/L; Blood Urea Nitrogen 10 mg/dL (7-17); Calcium 9.3 mg/dL (8.4-10.2); Carbon Dioxide 27 mmol/L (22-30); Chloride 103 mmol/L (98-107); Glucose 109 mg/dL (74-99); Non-African American GFR(CKD) >90 (>60 ml/min/1.73 sqM); Potassium 3.9 mmol/L (3.5-5.1); Sodium 139 mmol/L (137-145)
--- NOTE | 2020-08-17 17:11 | CT ---
EXAMINATION TYPE: CT cervical spine wo con DATE OF EXAM: 08/17/2020 COMPARISON: 05/04/2012 HISTORY: 64-year-old female Neck pain for months, worsening. TECHNIQUE: Contiguous axial scanning of the cervical spine without IV contrast. Coronal and sagittal reconstructions performed. CT DLP: 361.7 mGycm Automated exposure control for dose reduction was used. FINDINGS: No craniocervical junction abnormally, predental space widening, or prevertebral soft tissue swelling . Degenerative changes of the C1 dens articulation. Trace grade 1 anterolisthesis C4-C5, C6-C7, C7-T1. Scattered facet and uncovertebral joint arthropathy especially mid and lower cervical spine. Posterior disc protrusion at C3-C4 causes mild spinal canal stenosis. Posterior disc protrusions at C5-C6 and C6-C7 causing moderate spinal canal stenoses. At C4-C5, there is a moderate right neuroforaminal stenosis. At C5-C6, moderate to severe right and moderate left neuroforaminal stenosis. At C6/C7, mild bilateral neural foraminal stenosis. Postsurgical staple line within the posterior right upper lobe. Biapical pleural parenchymal scarring . Mild diffuse bronchial wall thickening suggesting bronchitis or chronic asthma. No acute fracture of the cervical spine. IMPRESSION: 1. NO ACUTE FRACTURE OF THE CERVICAL SPINE. DEGENERATIVE GRADE 1 ANTEROLISTHESIS C4-C5, C6/C7, AND C7 -T1. 2. MILD TO MODERATE SPONDYLOTIC CHANGE MID TO LOWER CERVICAL SPINE. THERE ARE ALSO POSTERIOR DISC PRO TRUSIONS THAT CONTRIBUTE TO MODERATE SPINAL CANAL STENOSIS AT C5-C6 AND C6/C7, MILD AT C3-C4. 3. VARIABLE MODERATE NEURAL FORAMINAL STENOSES OUTLINED ABOVE, MODERATE TO SEVERE ON THE RIGHT AT C5-C6.
--- NOTE | 2020-08-17 17:15 | ED ---
General Adult HPI - General Chief complaint: Neck Pain/Injury Stated complaint: spine pain, trouble swallowing Time Seen by Provider: 08/17/20 15:01 Source: patient, RN notes reviewed Mode of arrival: ambulatory Limitations: physical limitation - History of Present Illness Initial comments: Patient is a 64-year-old female presenting to the emergency room with increased neck pain. She notes she does have a history of cervical spinous stenosis which she has been receiving physical therapy for which she notes the physical therapy isn't helping for the last several weeks but she woke up this morning with increased pain. She notes the pain feels very similar but is more intense than her usual pain she came in to get symptomatic relief and get a computed tomography scan for evaluation for any new findings. She denied any other issues or complaints at this time. She was in moderate pain while sitting in bed during the exam interview. She denied any chest pains worse breath headache nausea vomiting diarrhea constipation fever fatigue chills - Related Data Home Medications Medication Instructions Recorded Confirmed Albuterol Sulfate [Proair Hfa] 1 - 2 puff INHALATION RT-Q6H PRN 11/03/17 10/18/19 Montelukast [Singulair] 10 mg PO HS 11/03/17 10/18/19 Alendronate Sodium [Fosamax] 70 mg PO SA 01/06/18 10/18/19 Acetaminophen Tab [Tylenol Tab] 1,000 mg PO Q6HR PRN 10/18/19 10/18/19 Ciclopirox Olamine [Ciclopirox 1 applic TOPICAL DAILY PRN 10/18/19 10/18/19 0.77% Topical Susp.] EPINEPHrine (Auto Inject) [Epipen] 0.3 mg IM ONCE PRN 10/18/19 10/18/19 Lipase/Protease/Amylase [Monica Dr 24,000 units PO DAILY PRN 10/18/19 10/18/19 12,000 Units Capsule] Previous Rx's Medication Instructions Recorded Apixaban [Eliquis Starter Pack 0 mg PO DIRECTED 30 Days #1 pack 10/18/19 (for VTE)] HYDROcodone/APAP 5-325MG [[place] 1 tab PO Q6HR PRN 3 Days #12 tab 10/18/19 5-325] Cyclobenzaprine HCl 10 mg PO TID 15 Days #45 tab 08/17/20 Allergies Allergy/AdvReac Type Severity Reaction Status Date / Time aspirin Allergy GI Verified 08/17/20 14:34 upset/RASH bee venom protein (honey bee) Allergy Unknown Verified 08/17/20 14:34 influenza virus vaccine, Allergy Rash/Hives Verified 08/17/20 14:34 specific [influenza virus vacc,specific] tetracycline Allergy GI Verified 08/17/20 14:34 UPSET/RASH Review of Systems ROS Statement: Those systems with pertinent positive or pertinent negative responses have been documented in the HPI. ROS Other: All systems not noted in ROS Statement are negative. 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 hepatitis in 70's, pneumothorax,spinal stenosis History of Any Multi-Drug Resistant Organisms: None Reported Past Surgical History: Breast Surgery, Hysterectomy Additional Past Surgical History / Comment(s): bilateral mastectomy, ovarian cysts removed, chest tube Past Anesthesia/Blood Transfusion Reactions: No Reported Reaction Past Psychological History: No Psychological Hx Reported Smoking Status: Never smoker Past Alcohol Use History: Occasional Past Drug Use History: Marijuana - Past Family History Father Family Medical History: Pulmonary Embolus Additional Family Medical History / Comment(s): loi PE Mother Family Medical History: Cancer Brother(s) Family Medical History: Cancer General Exam Limitations: physical limitation General appearance: alert, in no apparent distress, in distress Eye exam: Present: normal appearance, PERRL, EOMI. Absent: scleral icterus, conjunctival injection, periorbital swelling Neck exam: Present: normal inspection, tenderness (Along the posterior aspect) Respiratory exam: Present: normal lung sounds bilaterally. Absent: respiratory distress, wheezes, rales, rhonchi, stridor Cardiovascular Exam: Present: regular rate, normal rhythm, normal heart sounds. Absent: systolic murmur, diastolic murmur, rubs, gallop, clicks GI/Abdominal exam: Present: soft, normal bowel sounds. Absent: distended, tend erness, guarding, rebound, rigid Extremities exam: Present: normal inspection, full ROM, normal capillary refill. Absent: tenderness, pedal edema, joint swelling, calf tenderness Neurological exam: Present: alert, oriented X3 Psychiatric exam: Present: normal affect, normal mood Skin exam: Present: warm, dry, intact, normal color. Absent: rash Course Vital Signs 08/17/20 14:32 Temperature 98.6 F Pulse Rate 89 Respiratory 18 Rate Blood Pressure 170/88 O2 Sat by Pulse 100 Oximetry Medical Decision Making - Medical Decision Making 64-year-old female complaining of increased pain from her cervical spine stenosis. Basic labs, CT of the cervical spine ordered. Labs unremarkable. CT only shows chronic changes with no new issues. This discussed with Dr. Matthew, patient can discharge home in stable condition to follow up with her specialist and primary care. - Lab Data Result diagrams: 08/17/20 15:37 08/17/20 15:37 Lab Results 08/17/20 08/17/20 Range/Units 15:37 15:37 WBC 7.2 (3.8-10.6) k/uL RBC 4.23 (3.80-5.40) m/uL Hgb 14.8 (11.4-16.0) gm/dL Hct 42.1 (34.0-46.0) % MCV 99.6 (80.0-100.0) fL MCH 35.1 H (25.0-35.0) pg MCHC 35.2 (31.0-37.0) g/dL RDW 12.2 (11.5-15.5) % Plt Count 265 (150-450) k/uL MPV 7.0 Neutrophils % 82 % Lymphocytes % 10 % Monocytes % 6 % Eosinophils % 1 % Basophils % 1 % Neutrophils # 5.9 (1.3-7.7) k/uL Lymphocytes # 0.7 L (1.0-4.8) k/uL Monocytes # 0.4 (0-1.0) k/uL Eosinophils # 0.1 (0-0.7) k/uL Basophils # 0.0 (0-0.2) k/uL Sodium 139 (137-145) mmol/L Potassium 3.9 (3.5-5.1) mmol/L Chloride 103 (98-107) mmol/L Carbon Dioxide 27 (22-30) mmol/L Anion Gap 9 mmol/L BUN 10 (7-17) mg/dL Creatinine 0.57 (0.52-1.04) mg/dL Est GFR (CKD-EPI)AfAm >90 (>60 ml/min/1.73 sqM) Est GFR (CKD-EPI)NonAf >90 (>60 ml/min/1.73 sqM) Glucose 109 H (74-99) mg/dL Calcium 9.3 (8.4-10.2) mg/dL Disposition Clinical Impression: Cervical stenosis of spine Disposition: HOME SELF-CARE Condition: Stable Instructions (If sedation given, give patient instructions): Cervical Strain (ED) Additional Instructions: Please return to the Emergency Department if symptoms worsen or any other concerns. Follow-up with primary care and specialist as needed. Take Tylenol and Flexeril as prescribed. Avoid any strenuous activity or movements. Is patient prescribed a controlled substance at d/c from ED?: No Referrals: Israel Alfaro MD [Primary Care Provider] - 1-2 days Time of Disposition: 17:35
[2020-08-17] MEDS ORDERED: ACET/COD 300 MG/30 MG STARTER PACK 6 TAB BTL PO STA (17:32)
--- NOTE | 2020-08-17 17:36 | ED ---
Medical Decision Making - Lab Data Result diagrams: 08/17/20 15:37 08/17/20 15:37 Lab Results 08/17/20 08/17/20 Range/Units 15:37 15:37 WBC 7.2 (3.8-10.6) k/uL RBC 4.23 (3.80-5.40) m/uL Hgb 14.8 (11.4-16.0) gm/dL Hct 42.1 (34.0-46.0) % MCV 99.6 (80.0-100.0) fL MCH 35.1 H (25.0-35.0) pg MCHC 35.2 (31.0-37.0) g/dL RDW 12.2 (11.5-15.5) % Plt Count 265 (150-450) k/uL MPV 7.0 Neutrophils % 82 % Lymphocytes % 10 % Monocytes % 6 % Eosinophils % 1 % Basophils % 1 % Neutrophils # 5.9 (1.3-7.7) k/uL Lymphocytes # 0.7 L (1.0-4.8) k/uL Monocytes # 0.4 (0-1.0) k/uL Eosinophils # 0.1 (0-0.7) k/uL Basophils # 0.0 (0-0.2) k/uL Sodium 139 (137-145) mmol/L Potassium 3.9 (3.5-5.1) mmol/L Chloride 103 (98-107) mmol/L Carbon Dioxide 27 (22-30) mmol/L Anion Gap 9 mmol/L BUN 10 (7-17) mg/dL Creatinine 0.57 (0.52-1.04) mg/dL Est GFR (CKD-EPI)AfAm >90 (>60 ml/min/1.73 sqM) Est GFR (CKD-EPI)NonAf >90 (>60 ml/min/1.73 sqM) Glucose 109 H (74-99) mg/dL Calcium 9.3 (8.4-10.2) mg/dL - Radiology Data Radiology results: report reviewed, image reviewed CT of the C-spine: No acute fracture of the cervical spine. Degenerative grade 1 anterior listhesis C4-C5, C6-C7, and C7-T1. Mild to moderate spondylitic change mid to lower cervical spine there are also posterior disc protrusion to contribute to moderate spinal canal stenosis at C5-C6 and C6-C7 mild at C3-C4. Variable moderate neuroforaminal stenosis as outlined above moderate to severe on the right at C5 to C6 Disposition Clinical Impression: Cervical stenosis of spine Disposition: HOME SELF-CARE Condition: Stable Instructions (If sedation given, give patient instructions): Cervical Strain (ED) Additional Instructions: Please return to the Emergency Department if symptoms worsen or any other concerns. Follow-up with primary care and specialist as needed. Take Tylenol and Flexeril as prescribed. Avoid any strenuous activity or movements. Prescriptions: Cyclobenzaprine HCl 10 mg PO TID 15 Days #45 tab Is patient prescribed a controlled substance at d/c from ED?: No Referrals: Israel Alfaro MD [Primary Care Provider] - 1-2 days
[2020-08-17 17:51] VITALS: BP 150/79; PULSE 80
== END 2020-08-17 17:50 | disposition home or self-care (01) ==
LOC: EC 14:01
DX: M48.02 Spinal stenosis, cervical region (principal); J45.909 Unspecified asthma, uncomplicated; M19.90 Unspecified osteoarthritis, unspecified site; F12.90 Cannabis use, unspecified, uncomplicated; Z79.51 Long term (current) use of inhaled steroids
CPT/HCPCS: 36415; 80048; 85025; 72125; 99284; 96374; 96375; J2270; J1170

== ENCOUNTER → 2021-10-23 | Outpatient (CLI) | payer MEDICARE, BC ==
--- NOTE | 2021-10-23 11:35 | NM ---
EXAMINATION TYPE: NM stress lexiscan cardiolite DATE OF EXAM: 10/23/2021 COMPARISON: NONE HISTORY: Chest pain TECHNIQUE: After the intravenous administration of 9.7 mCi Tc 99m Sestamibi - Cardiolite resting SPE CT images acquired 45 minutes post injection. The patient received 0.4mg Lexiscan, 24.7 mCi Tc 99m Sestamibi - Stress images obtained [address] injection FINDINGS: Review of stress and rest SPECT images demonstrates large predominantly fixed perfusion abnormality a pex and apical inferior myocardium extending laterally. Corresponding wall motion defect. Findings serrato spicious for small area of stability involving the apical myocardium.. Gated analysis shows an estim ated left ventricular ejection fraction of 48 %. Report telephoned and faxed over to referring clinic [email or web address] 11:27 AM 10/23/2021 IMPRESSION: 1. Ejection fraction of only 48% with predominantly fixed defect involving the apex and apical latera l myocardium suggestive of remote infarct. Small area of stress-induced reversible ischemia involving the apex of the myocardium is not excluded.
--- NOTE | 2021-10-23 13:10 | CA ---
Lexiscan Nuclear Stress Test Report Name: Avelina Gomez Exam Date: 10/23/2021 09:44 Exam Location: [facility] Ht (in): 66 Wt (lb): 108 BSA: 1.54 Ordering Phys: Israel Alfaro MD Referring Phys: Dominic, Technologist: Satinder Wrigth Age: 65 Gender: F : 1955 Procedure CPT: Indications: R07.9 CHEST PAIN ICD-10 Codes: Patient History: Chest Pain Medications: Meds past 24 hrs: Pretest Chest Pain: STRESS TEST Lexiscan Protocol Exercise Duration (min:sec): 02:[address] Depressions (mm): Angina Score: Rodas Score: Resting HR (bpm): 64 Peak HR (bpm): 101 Resting BP (mmHg): 150 / 81 Peak BP (mmHg): 147 / 64 MPHR: 153 Target HR: 130 % MPHR: 66 METS: 1.0 Total Dose: Peak Dose: Atropine: Double Product: 90680 BP Response: Stress Termination: infusion complete Stress Symptoms: No chest pain or symptoms Stress Summary: ECG ANALYSIS Resting ECG: Stress ECG: CONCLUSIONS At baseline EKG showed normal sinus rhythm, left bundle branch block. Patient recieved IV infusion of Lexiscan 0.4mg and at peak infusion EKG showed no significant change from baseline. Conclusions: 1. Nonspecific EKG portion secondary baseline EKG abnormalities, left bundle branch block. 2. Nuclear imaging to be reported separately. Dr. Mando Kenney DO (Electronically Signed) Final Date: 23 October 2021 13:09
== END | disposition home or self-care (01) ==
LOC: RADNMMAIN 07:57
PROVIDERS: ATTEND Internal Medicine
DX: I44.7 Left bundle-branch block, unspecified (principal); R07.9 Chest pain, unspecified
CPT/HCPCS: 93017; 78452; A9500

== ENCOUNTER → 2021-10-24 | Outpatient (CLI) | payer MEDICARE, BC ==
[2021-10-24 19:24] LABS: HCT 44.3 % (37.2-46.3); HGB 14.6 g/dL (12.0-15.0); Mean Platelet Volume 9.5 fL (9.5-12.2); NRBC Per 100 WBC 0 /100 WBCS (0.0-0.0); Platelet Count 275 X 10*3/uL (140-440); RBC 4.43 X 10*6/uL (4.10-5.20); RDW 13.1 % (11.5-14.5); WBC 5.48 X 10*3/uL (4.50-10.00)
[2021-10-24 19:34] LABS: African American GFR (CKD) 100.4 (60.0-200.0); Anion Gap 10.3 mmol/L (10.00-18.00); Blood Urea Nitrogen 12.7 mg/dL (9.0-27.0); Carbon Dioxide 25.6 mmol/L (20.0-27.5); Non-African American GFR(CKD) 86.7 (60.0-200.0); Potassium 4.5 mmol/L (3.5-5.5)
== END | disposition home or self-care (01) ==
LOC: LABWHC1 11:41
PROVIDERS: ATTEND Internal Medicine Interventional Cardiology
DX: R07.9 Chest pain, unspecified (principal)
CPT/HCPCS: 36415; 80051; 82565; 84520; 85027

== ENCOUNTER 2021-11-01 08:00 | Day surgery (SDC) | payer MEDICARE, BC ==
[2021-10-31 07:58] VITALS: BMI 17.2
[~2021-11-01 08:00] MED LIST changes: -ACETAMINOPHEN TAB 500 MG TAB PO ONE; +ALPRAZolam 0.25 MG TAB PO PRN; +ALPRAZolam 0.5 MG TAB PO PRN; +ASPIRIN 325 MG TAB PO STA; +ATORVASTATIN 80 MG TAB PO STA; +HEPARIN SODIUM,PORCINE 10,000 UNIT in SODIUM CHLORIDE 0.9% 1,000 ML IRRIGATION PRN; +HEPARIN SODIUM,PORCINE 2,500 UNIT in SODIUM CHLORIDE 0.9% 250 ML IRRIGATION PRN; -MELOXICAM 7.5 MG TAB PO ONE; +NITROGLYCERIN SL TABS 0.4 MG TAB SUBLINGUAL PRN; +SODIUM CHLORIDE 0.9% 1,000 ML in EMPTY BAG 1 BAG IV SCH; -TRANEXAMIC ACID 1,000 MG in SODIUM CHLORIDE 0.9% 50 ML IVPB ONE; -ceFAZolin IN SWFI 2 GM/20 ML SYRINGE IVP ONE
[2021-11-01] MEDS ORDERED: ASPIRIN 81 MG PO ONE (08:16)
[2021-11-01] MEDS ORDERED: SODIUM CHLORIDE 0.9% 1,000 ML IV ONE (08:16)
[2021-11-01 08:34] VITALS: RESP 16; TEMP 97.9
[2021-11-01] MEDS ORDERED: fentaNYL (PF) 50 MCG/ML 2 ML AMP IVP ONE (09:11)
[2021-11-01] MEDS ORDERED: MIDAZOLAM 2 MG/2 ML VIAL IVP ONE (09:11)
[2021-11-01] MEDS ORDERED: LIDOCAINE 1% INJ 10MG/ML (30 ML VIAL-PF) SQ ONE (09:13)
[2021-11-01] MEDS ORDERED: VERAPAMIL SYRINGE (5 MG/10 ML) INTRAARTER ONE (09:21)
[2021-11-01] MEDS ORDERED: HEPARIN SODIUM 1,000 UN/ML (10ML VL) IVP ONE (09:24)
[2021-11-01] MEDS ORDERED: IOPAMIDOL-370 125ML BTL INJ ONE (09:31)
[2021-11-01] MEDS ORDERED: RX INFO: IV CONTRAST WAS GIVEN 1 EACH MISC MISCELLANE PRN (09:50)
[2021-11-01 14:56] VITALS: BP 110/68; PULSE 56
--- NOTE | 2021-11-01 21:17 | LTR ---
Dear Dr. Sigala, I performed cardiac catheterization on Avelina Gomez. A detailed catheterization note is enclosed for your records. 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 Thank you for giving me the privilege to participate in the care of this pleasant lady. MMTROY / LUANNEN: [id number] /
--- NOTE | 2021-11-01 21:27 | CC ---
CARDIAC CATHETERIZATION REPORT INDICATIONS: Chest pain with abnormal stress test showing evidence of prior apical myocardial infarction with areas of reversibility. PROCEDURE NOTE: After obtaining informed consent, left heart catheterization and coronary angiogram were performed via the right radial artery using size 3.5 Ana catheters. The patient tolerated the procedure well without any obvious immediate complications. She received moderate conscious sedation, total sedation time was 20 minutes. Using a micropuncture needle, right radial artery access was obtained and a 6-[place] sheath was introduced through this catheters and wires were floated into the ascending aorta under fluoroscopic guidance. The patient received 5 mg of verapamil and 3000 units of heparin as per protocol and at the end of the procedure, the TR band was placed for hemostasis. FINDINGS: 1. Hemodynamics: Left ventricular end-diastolic pressure is 11 mm. There is no significant gradient across the aortic valve. 2. Left ventriculogram: Has not been performed. 3. Angiographic data: Right coronary artery, right coronary artery is a large dominant vessel, shows mild nonobstructive disease involving mid RCA. Left main coronary artery is a normal-sized vessel and is free of stenosis, divides into left anterior descending coronary artery and circumflex coronary artery, circumflex coronary artery and its branches are free of significant stenosis. LAD and its branches are free of significant disease. CONCLUSIONS: Mild nonobstructive coronary artery disease involving right coronary artery. No significant disease involving LAD. PLAN: I reviewed angiographic data with the patient and told her that her chest discomfort is noncardiac in origin and stress test is a false-positive stress test. I suggested that she use aspirin 81 mg daily and continue the atorvastatin that she is currently on. MMODL / IJN: [id number] /
== END 2021-11-01 14:10 | disposition home or self-care (01) ==
LOC: CATHCVL 08:00
PROVIDERS: ATTEND Internal Medicine Cardiovascular Disease
DX: I25.10 Atherosclerotic heart disease of native coronary artery without angina pectoris (principal); E78.2 Mixed hyperlipidemia; Z82.49 Family history of ischemic heart disease and other diseases of the circulatory system
CPT/HCPCS: 93458; C1769; C1894; J2250; J2001; J3010; J1644; Q9967

== ENCOUNTER 2021-11-18 19:49 | Emergency (ER) | payer MEDICARE, BC ==
[2021-11-18] MEDS ORDERED: MORPHINE SULFATE 4 MG/ML SYRINGE IM STA (20:16)
[2021-11-18] MEDS ORDERED: ORPHENADRINE 30 MG/ML 2 ML VIAL IM STA (20:16)
[2021-11-18] MEDS ORDERED: predniSONE 20 MG TAB PO STA (20:16)
[2021-11-18] MEDS ORDERED: ACET/COD 300 MG/30 MG STARTER PACK 6 TAB BTL PO STA (20:17)
--- NOTE | 2021-11-18 20:25 | ED ---
Neck Injury/Pain HPI - General Chief Complaint: Neck Pain/Injury Stated Complaint: Head/neck pain Time Seen by Provider: 11/18/21 20:00 Source: RN notes reviewed Mode of arrival: ambulatory Limitations: no limitations - History of Present Illness Initial Comments: This is a pleasant 65-year-old female with a history of cervical spine stenosis and chronic/degenerative cervical disc disease. Patient presents to the emergency department today stating that she woke up at 2 AM with increased pain. Patient states she's had it daily pain for about the last [address] [facility] and it sounds like she is a candidate for cervical fusion in her lower cervical spine. Patient denies any injury. She denies any fever or chills. No difficulty swallowing. No numbness or tingling/weakness in the upper extremities. Patient states this is very consistent with the chronic neck pain she has had but is worse. Pain is aching and sharp in nature and exacerbated by movement. No headache, no fever or chills, no changes in vision or hearing, no sore throat or difficulty with speech, no neck pain, no chest pain or shortness of breath, no abdominal pain, no nausea or vomiting, no changes in urination or bowel movements, no numbness or tingling, no extremity pain, no skin rashes or lesions. Past medical, surgical, social, and family history reviewed. MD Complaint: neck pain - Related Data Home Medications Medication Instructions Recorded Confirmed Albuterol Sulfate [Proair Hfa] 1 - 2 puff INHALATION RT-Q6H PRN 11/03/17 10/31/21 Montelukast [Singulair] 10 mg PO HS 11/03/17 11/01/21 Alendronate Sodium [Fosamax] 70 mg PO FR 01/06/18 11/01/21 Aspirin Tab 81 mg PO DAILY 10/31/21 11/01/21 Atorvastatin [Lipitor] 20 mg PO HS 10/31/21 11/01/21 Isosorbide Mononitrate ER [Imdur] 30 mg PO DAILY 10/31/21 10/31/21 Metoprolol Succinate (ER) [Toprol 25 mg PO DAILY 10/31/21 11/01/21 XL] Previous Rx's Medication Instructions Recorded Cyclobenzaprine [Flexeril] 5 mg PO TID PRN #20 tablet 11/18/21 methylPREDNISolone Dose Pack 4 mg PO DIRECTED #21 tab 11/18/21 [Medrol Dose Pack] Allergies Allergy/AdvReac Type Severity Reaction Status Date / Time aspirin Allergy GI Verified 11/18/21 19:54 upset/RASH bee venom protein (honey bee) Allergy Unknown Verified 11/18/21 19:54 tetracycline Allergy GI Verified 11/18/21 19:54 UPSET/RASH Review of Systems ROS Statement: Those systems with pertinent positive or pertinent negative responses have been documented in the HPI. ROS Other: All systems not noted in ROS Statement are negative. 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- Last Myocardial Infarction Date:: 10/13/21 History of Any Multi-Drug Resistant Organisms: None Reported Past Surgical History: Breast Surgery, Hysterectomy, Joint Replacement Additional Past Surgical History / Comment(s): bilateral mastectomy, ovarian cysts removed, cancer removed from chest wall, left hip replacement Past Anesthesia/Blood Transfusion Reactions: No Reported Reaction Past Psychological History: No Psychological Hx Reported Smoking Status: Never smoker Past Alcohol Use History: Occasional Past Drug Use History: Marijuana - Past Family History Father Family Medical History: Pulmonary Embolus Additional Family Medical History / Comment(s): loi PE Mother Family Medical History: Cancer Brother(s) Family Medical History: Cancer General Exam - General Exam Comments Initial Comments: Thin but healthy-appearing 65-year-old female in mild distress secondary to chronic neck pain. Does not appear to be ill or toxic. Cranial nerves II through XII are intact. Alert and oriented 4. Limitations: no limitations General appearance: in distress (Mild) Head exam: Present: atraumatic, normocephalic, normal inspection Eye exam: Present: normal appearance, PERRL, EOMI. Absent: scleral icterus, conjunctival injection, periorbital swelling ENT exam: Present: normal exam, normal oropharynx, mucous membranes moist, normal external ear exam. Absent: mucous membranes dry Neck exam: Present: normal inspection, tenderness (Patient has tenderness to the cervical paraspinals posteriorly. No break in skin integrity. No erythema. No rash or lesion.). Absent: meningismus, full ROM (Range of motion limited with r egard to axial rotation, for flexion, and extension. Any movement exacerbates the pain.), lymphadenopathy Respiratory exam: Present: normal lung sounds bilaterally. Absent: respiratory distress, wheezes, rales, rhonchi, stridor, chest wall tenderness, accessory muscle use Cardiovascular Exam: Present: regular rate, normal rhythm, normal heart sounds. Absent: systolic murmur, diastolic murmur, rubs, gallop, clicks GI/Abdominal exam: Present: soft. Absent: distended, tenderness, guarding, rebound, rigid Extremities exam: Present: normal inspection, full ROM, normal capillary refill. Absent: tenderness, pedal edema, joint swelling, calf tenderness Back exam: Present: normal inspection Neurological exam: Present: alert, oriented X3, CN II-XII intact, normal gait, reflexes normal, other (Customer Service Driver strength is +55 in the upper extremities, sensation intact.). Absent: motor sensory deficit Psychiatric exam: Present: normal affect, normal mood. Absent: anxious, flat affect Skin exam: Present: warm, dry, intact, normal color. Absent: rash Course Vital Signs 11/18/21 19:51 Temperature 98.2 F Pulse Rate 93 Respiratory 16 Rate Blood Pressure 152/84 O2 Sat by Pulse 97 Oximetry Medical Decision Making - Medical Decision Making Patient presents with acute exacerbation chronic neck pain. Patient has known cervical spinal stenosis and cervical DJD. Treat the patient with pain medication, muscle relaxers, and a course of corticosteroids. I do not believe the patient needs any imaging at this time. Patient can follow up with her specialist, Dr. Brumfield. She will call tomorrow morning at 8 AM to set the appointment up for this week. Patient concurs with this treatment plan. Given a Tylenol with Codeine starter pack as well. 40 mg of prednisone here. Medrol Dosepak for home. Short course of Flexeril. Patient was told to return to the ER for any signs or symptoms worsen. Told to return immediately if any other problems arise. All questions answered. Treatment plan discussed. Patient in agreement Every effort has been made to ensure accuracy of this dictation. However, due to the limitations of electronic medical records and dictation devices, errors in charting still occur. Supervising physician is Dr. Calhoun Disposition Clinical Impression: Cervicalgia Narrative: Acute on chronic neck pain. Disposition: HOME SELF-CARE Condition: Good Instructions (If sedation given, give patient instructions): Cervical Strain (ED), Hypertension (ED) Additional Instructions: Call tomorrow morning to schedule an appointment with your specialist, Dr. Brumfield. Follow-up with your regular physician as directed--your blood pressure was slightly elevated here today. This need to be monitored by her regular physician.. Return to the ER immediately if any symptoms worsen, new symptoms arise, or any other problems develop. Prescriptions: Cyclobenzaprine [Flexeril] 5 mg PO TID PRN #20 tablet PRN Reason: Spasms methylPREDNISolone Dose Pack [Medrol Dose Pack] 4 mg PO DIRECTED #21 tab Is patient prescribed a controlled substance at d/c from ED?: No Referrals: Israel Alfaro MD [Primary Care Provider] - 1-2 days Latosha Brumfield DO [Doctor of Osteopathic Medicine] - As Soon As Possible Time of Disposition: 20:25
[2021-11-18 21:15] VITALS: BP 119/62; PULSE 68; RESP 15; TEMP 98
== END 2021-11-18 21:15 | disposition home or self-care (01) ==
LOC: EC 19:49
DX: M54.2 Cervicalgia (principal); J45.909 Unspecified asthma, uncomplicated; I25.2 Old myocardial infarction; M19.90 Unspecified osteoarthritis, unspecified site; Z86.718 Personal history of other venous thrombosis and embolism; Z79.02 Long term (current) use of antithrombotics/antiplatelets; Z88.6 Allergy status to analgesic agent; Z91.030 Bee allergy status; Z88.1 Allergy status to other antibiotic agents
CPT/HCPCS: 99283; 96372; J2270; J2360; J7512

== ENCOUNTER → 2022-08-12 | Outpatient (CLI) | payer MEDICARE, BC ==
--- NOTE | 2022-08-12 13:19 | BD ---
EXAMINATION TYPE: Axial Bone Density DATE OF EXAM: 08/12/2022 CLINICAL HISTORY: 66 years old Female. ICD-10 CODE: M85.80 DISRD OF BONE DENSITY Height: 65.5in Weight: 107lb FRAX RISK QUESTIONS: Family History (Parent hip fracture): yes History of Fracture in Adulthood: yes Secondary Osteoporosis: 3. Menopause before 45: yes RISK FACTORS HISTORY OF: Hip Fracture (Right/Left): left When: 2018 History of Wrist Fracture: left When: in the 1969's Surgery to Spine/Hip(right/left)/Wrist (right/left): left hip surgery x 2 When: 2018 Family History of Osteoporosis: yes Active: yes Postmenopausal woman: yes MEDICATIONS: Osteoporosis Medications: Which medication: Alendronate once a week How Lon years Additional Medications: singulair, proair, cardiac med, Additional History: lt breast cancer 2009, rt breast cancer 2014 EXAM MEASUREMENTS: Bone mineral densitometry was performed using the [employer] System. Bone mineral density as measured about the Lumbar spine is: ----- L1-L4(G/cm2): 1.036 T Score Values are as follows: ----- L1: -0.3 ----- L2: -2.1 ----- L3: -1.6 ----- L4: -1.0 ----- L1-L4: -1.2 Z Score Values are as follows: ----- L1: 1.9 ----- L2: 0.1 ----- L3: 0.6 ----- L4: 1.2 ----- L1-L4: 1.0 Bone mineral density has: Increased 7.6% since study of: 11-05-2017 Bone mineral density about the R hip (g/cm2): 0.725 T Score values are as follows: -----R Neck: -1.7 -----R Total: -2.2 Z Score values are as follows: -----R Neck: 0.3 -----R Total: -0.5 Bone mineral density has: Increased 3.6% since study of: 11-05-2017 FRAX%s: The graph provided illustrates a 22.1% chance for a major osteoporotic fx and a 4.0% chance f or the hips probability for fx in 10 years time. IMPRESSION: Osteopenia (T Score between -2.5 and -1). There is slightly increased risk of fracture and the patient may be considered for treatment. Re-Screen 2-5 years. NOTE: T-SCORE=SD OF THE YOUNG ADULT MEAN.
== END | disposition home or self-care (01) ==
LOC: RADBDWWP 07:52
PROVIDERS: ATTEND Internal Medicine
DX: M85.89 Other specified disorders of bone density and structure, multiple sites (principal); Z78.0 Asymptomatic menopausal state; Z85.3 Personal history of malignant neoplasm of breast
CPT/HCPCS: 77080

== ENCOUNTER → 2023-02-14 | Outpatient (CLI) | payer MEDICARE, BC ==
--- NOTE | 2023-02-14 17:30 | US ---
EXAMINATION TYPE: US carotid duplex BILAT DATE OF EXAM: 02/14/2023 COMPARISON: NONE CLINICAL INDICATION: Female, 67 years old with history of I65.29 OCCLUSION AND STENOSIS OF UNSPECIFIE D CAROT; Carotid calcification TECHNIQUE: Carotid duplex ultrasound examination. Indirect Doppler criteria was utilized. FINDINGS: EXAM MEASUREMENTS: RIGHT: Peak Systolic Velocity (PSV) cm/sec ----- Right CCA: 101.8 ----- Right ICA: 112.1 ----- Right ECA: 84.2 ICA/CCA ratio: 1.1 RIGHT: End Diastole cm/sec ----- Right CCA: 27.0 ----- Right ICA: 31.8 ----- Right ECA: 12.8 LEFT: Peak Systolic Velocity (PSV) cm/sec ----- Left CCA: 102.9 ----- Left ICA: 97.4 ----- Left ECA: 91.9 ICA/CCA ratio: 0.9 LEFT: End Diastole cm/sec ----- Left CCA: 27.0 ----- Left ICA: 30.3 ----- Left ECA: 17.1 VERTEBRALS (direction of flow): Right Vertebral: Antegrade Left Vertebral: Antegrade Rhythm: Normal SECTION HAND HELPER NOTES: Mild plaque bilateral bifurcations. No evidence of increased velocities. IMPRESSION: Less than 50% stenosis of the bilateral carotid bifurcations. Criteria for Assigning % of Stenosis / Diameter reduction (Estimation based on the indirect measurements of the internal carotid artery velocities (ICA PSV). 1. Normal (no stenosis)=ICA PSV < 125 cm/s: ratio < 2.0: ICA EDV<40 cm/s. 2. Less than 50% stenosis=ICA PSV < 125 cm/s: ratio < 2.0: ICA EDV<40 cm/s. 3. 50 to 69% stenosis=ICA PSV of 125 to 230 cm/s: ration 2.0 ? 4.0: ICA EDV 40-100 cm/s. 4. Greater than 70% stenosis to near occlusion= ICA PSV > 230 cm/s: ratio > 4.0: ICA EDV > 100 cm/s. 5. Near occlusion= ICA PSV velocities may be low or undetectable: variable ratio and ICA EDV. 6. Total occlusion=unable to detect flow.
== END | disposition home or self-care (01) ==
LOC: RADUSWWP 16:09
PROVIDERS: ATTEND Internal Medicine
DX: I65.23 Occlusion and stenosis of bilateral carotid arteries (principal)
CPT/HCPCS: 93880

== ENCOUNTER → 2023-06-02 | Outpatient (CLI) | payer MEDICARE, BC ==
[2023-06-02 11:00] LABS: Basophils # (A) 0.07 X 10*3/uL (0.00-0.10); Basophils % (A) 0.8 %; Eosinophils # (A) 0.22 X 10*3/uL (0.04-0.35); Eosinophils % (A) 2.4 %; HCT 41.3 % (37.2-46.3); HGB 13.4 g/dL (12.0-15.0); Lymphocytes # (A) 1.41 X 10*3/uL (0.90-5.00); Lymphocytes % (A) 15.5 %; MCH 32.8 pg (27.0-32.0); MCHC 32.4 g/dL (32.0-37.0); Mean Platelet Volume 9.4 FL (9.5-12.2); Monocytes # (A) 0.36 X 10*3/uL (0.20-1.00); NRBC Per 100 WBC 0 X 10*3/uL (0.00-0.01); Neutrophils % (A) 76.8 %; Platelet Count 458 X 10*3/uL (140-440); RBC 4.09 X 10*6/uL (4.10-5.20); RDW 12.5 % (11.5-14.5); WBC 9.11 X 10*3/uL (4.50-10.00)
[2023-06-02 11:28] LABS: NT-Pro-B-Type Natriuretic Pept 603 pg/mL (0-125)
[2023-06-02 11:54] LABS: ALT 37 U/L (8-44); AST 22 U/L (13-35); Albumin 4.1 g/dL (3.8-4.9); Albumin/Globulin Ratio 1.58 Ratio (1.60-3.17); Alkaline Phosphatase 69 U/L (41-126); Blood Urea Nitrogen 20.4 mg/dL (9.0-27.0); Calcium 9.4 mg/dL (8.7-10.3); Carbon Dioxide 26.8 mmol/L (21.6-31.8); Chloride 104 mmol/L (96-109); Chol/HDL Ratio 2.99 Ratio; Globulin 2.6 g/dL (1.6-3.3); Glucose 94 mg/dL (70-110); LDL Cholesterol,Calculated 98.7 mg/dL (0.0-131.0); Potassium 4.5 mmol/L (3.5-5.5); Sodium 141 mmol/L (135-145); Total Bilirubin 0.3 mg/dL (0.3-1.2); Total Protein 6.7 g/dL (6.2-8.2)
== END | disposition home or self-care (01) ==
LOC: LABWHC1 07:14
PROVIDERS: ATTEND Internal Medicine
DX: E78.2 Mixed hyperlipidemia (principal); M85.80 Other specified disorders of bone density and structure, unspecified site; I42.8 Other cardiomyopathies; Z85.3 Personal history of malignant neoplasm of breast
CPT/HCPCS: 36415; 80053; 80061; 82306; 83880; 84443; 85025; 86850; 86900; 86901

== ENCOUNTER → 2023-07-31 | Outpatient (CLI) | payer MEDICARE, BC ==
--- NOTE | 2023-08-01 10:18 | US ---
EXAMINATION TYPE: US kidneys/renal and bladder DATE OF EXAM: 07/31/2023 COMPARISON: None relevant CLINICAL INDICATION: Female, 67 years old with history of R31.29 OTHER MICROSCOPIC HEMATURIA; UTI sym ptoms without evidence of UTI EXAM MEASUREMENTS: Right Kidney: 10.0 x 5.1 x 4.8 cm Left Kidney: 10.3 x 4.7 x 5.7 cm Post Void Residual Volume: NA mL Right Kidney: No hydronephrosis or masses seen Left Kidney: No hydronephrosis or masses seen Bladder: wnl Bilateral Jets seen: Yes Normal Post Void Residual: NA There is no evidence for hydronephrosis at this point in time. No nephrolithiasis is seen. No joseluis s are identified. The urinary bladder is anechoic. Bilateral ureteral jets are seen. IMPRESSION: No significant abnormality seen.
== END | disposition home or self-care (01) ==
LOC: RADUSWWP 16:17
PROVIDERS: ATTEND Internal Medicine
DX: R31.29 Other microscopic hematuria (principal)
CPT/HCPCS: 76770

== ENCOUNTER → 2023-12-09 | Outpatient (CLI) | payer MEDICARE, BC ==
[2023-12-09 15:40] LABS: ALT 22 U/L (8-44); AST 25 U/L (13-35); Albumin 4.4 g/dL (3.8-4.9); Albumin/Globulin Ratio 1.91 Ratio (1.60-3.17); Alkaline Phosphatase 82 U/L (41-126); BUN/Creat Ratio 14.29 Ratio (12.00-20.00); Calcium 9.7 mg/dL (8.7-10.3); Carbon Dioxide 27.4 mmol/L (21.6-31.8); Chloride 104 mmol/L (96-109); Chol/HDL Ratio 2.62 Ratio; Globulin 2.3 g/dL (1.6-3.3); Glucose 101 mg/dL (70-110); LDL Cholesterol,Calculated 87.1 mg/dL (0.0-131.0); Potassium 4.8 mmol/L (3.5-5.5); Sodium 142 mmol/L (135-145); Total Bilirubin 0.4 mg/dL (0.3-1.2); Total Protein 6.7 g/dL (6.2-8.2)
== END | disposition home or self-care (01) ==
LOC: LABWHC1 08:01
PROVIDERS: ATTEND Internal Medicine Interventional Cardiology
DX: E78.2 Mixed hyperlipidemia (principal)
CPT/HCPCS: 36415; 80053; 80061

== ENCOUNTER → 2024-03-04 | Outpatient (CLI) | payer MEDICARE, BC ==
--- NOTE | 2024-03-04 15:42 | US ---
EXAMINATION TYPE: US carotid duplex BILAT DATE OF EXAM: 03/04/2024 COMPARISON: 02/14/2023 CLINICAL INDICATION: Female, 68 years old with history of I65.29 Carotid artery calcification; No HTN . No hx of TIA or stroke. Additional History: .... TECHNIQUE: Grayscale, color Doppler and spectral Doppler evaluation of the bilateral carotid systems and vertebral arteries. Indirect Doppler criteria was utilized. FINDINGS: EXAM MEASUREMENTS: RIGHT: Peak Systolic Velocity (PSV) cm/sec ----- Right CCA: 98.5 ----- Right ICA: 81.7 ----- Right ECA: 93.8 ICA/CCA ratio: 0.8 RIGHT: End Diastole cm/sec ----- Right CCA: 19.3 ----- Right ICA: 26.7 ----- Right ECA: 93.8 LEFT: Peak Systolic Velocity (PSV) cm/sec ----- Left CCA: 114.5 ----- Left ICA: 113.4 ----- Left ECA: 139.9 ICA/CCA ratio: 1.0 LEFT: End Diastole cm/sec ----- Left CCA: 24.6 ----- Left ICA: 26.7 ----- Left ECA: 20.4 VERTEBRALS (direction of flow): Right Vertebral: Antegrade Left Vertebral: Antegrade Rhythm: Normal PSYCHIATRIC AIDE INSTRUCTOR NOTES: Mild Calcifications seen in bilateral bulbs. Elevated left ECA velocity. Color Doppler imaging shows patency with blood flow throughout the carotid artery. Spectral waveforms are within normal limits. IMPRESSION: Right: Mild eccentric plaque within the carotid bifurcations but no significant stenosis based on col or and gonzalez scale imaging or Doppler waveform analysis. Left: Mild eccentric plaque within the carotid bifurcations but no significant stenosis based on colo r and gonzalez scale imaging or Doppler waveform analysis. Criteria for Assigning % of Stenosis / Diameter reduction (Estimation based on the indirect measurements of the internal carotid artery velocities (ICA PSV). 1. Normal (no stenosis)=ICA PSV < 125 cm/s: ratio < 2.0: ICA EDV<40 cm/s. 2. Less than 50% stenosis=ICA PSV < 125 cm/s: ratio < 2.0: ICA EDV<40 cm/s. 3. 50 to 69% stenosis=ICA PSV of 125 to 230 cm/s: ration 2.0 ? 4.0: ICA EDV 40-100 cm/s. 4. Greater than 70% stenosis to near occlusion= ICA PSV > 230 cm/s: ratio > 4.0: ICA EDV > 100 cm/s. 5. Near occlusion= ICA PSV velocities may be low or undetectable: variable ratio and ICA EDV. 6. Total occlusion=unable to detect flow. [facility], , 03/04/2024 3:39 PM
== END | disposition home or self-care (01) ==
LOC: RADUSWWP 14:50
PROVIDERS: ATTEND Internal Medicine
DX: I65.29 Occlusion and stenosis of unspecified carotid artery (principal)
CPT/HCPCS: 93880

== ENCOUNTER → 2024-06-14 | Outpatient (CLI) | payer MEDICARE, BC ==
[2024-06-14 13:39] LABS: African American GFR (CKD) >90 (>60 ml/min/1.73 sqM); Blood Urea Nitrogen 9 mg/dL (7-17); Non-African American GFR(CKD) >90 (>60 ml/min/1.73 sqM)
== END | disposition home or self-care (01) ==
LOC: RADCTMAIN 12:32
PROVIDERS: ATTEND Internal Medicine
DX: I99.8 Other disorder of circulatory system (principal)
CPT/HCPCS: 82565; 84520

== ENCOUNTER → 2024-06-21 | Outpatient (CLI) | payer MEDICARE, BC ==
--- NOTE | 2024-06-21 09:19 | CT ---
EXAMINATION TYPE: CT angio upper extremity RT DATE OF EXAM: 06/21/2024 9:00 AM COMPARISON: None HISTORY: Circulatory issues RT hand, first digit will turn black. Hx Raynauds. CT DLP: 402.30 mGycm Automated exposure control for dose reduction was used. TECHNIQUE: Performed with IV Contrast, patient injected with 10 mL of Isovue 370. CTA of the right upper extremity was performed through the digits.. FINDINGS: Thoracic aorta is incompletely visualized. There is normal appearance of the subclavian, axillary and brachial arteries with no stenotic or occlusive lesions. Patent common interosseous, anterior and po sterior interosseous arteries which can be traced down to the wrist. Patent radial artery which can b e traced down to the rest. Partially visualized deep palmar arch and palmar metacarpal digital arteri es. Patent ulnar artery which can be traced to the wrist. Partially patent superficial palmar arch an d incompletely visualized common palmar digital arteries. IMPRESSION: There is limited visualization about the hand. As noted there is partially visualized deep palmar arc h and pulmonary metacarpal digital arteries. In addition is partially patent superficial palmar arch and extending incompletely visualized common palmar digital arteries. Underlying stenoses or occlusio ns difficult to exclude. Consider conventional angiography for further evaluation. [facility], , 06/21/2024 9:16 AM
== END | disposition home or self-care (01) ==
LOC: RADCTMAIN 07:41
PROVIDERS: ATTEND Internal Medicine
DX: I99.8 Other disorder of circulatory system (principal)
CPT/HCPCS: 36415; 73206; Q9967

== ENCOUNTER → 2024-08-04 | Outpatient (CLI) | payer MEDICARE, BC ==
--- NOTE | 2024-08-04 13:22 | FL ---
EXAMINATION TYPE: FL barium swallow w video DATE OF EXAM: 08/04/2024 1:17 PM COMPARISON: None. CLINICAL INDICATION: Female, 68 years old with history of R13.10 FOOD STICKS SWALLOW R12 HEARTBURN, TECHNIQUE: FL barium swallow w video view(s) obtained. FINDINGS: The heart size is normal. The pulmonary vasculature is normal. The lungs are clear. IMPRESSION: 1. No acute pulmonary process. [facility], , 08/04/2024 1:20 PM
--- NOTE | 2024-08-04 14:03 | FL ---
EXAMINATION TYPE: FL barium swallow w video DATE OF EXAM: 08/04/2024 MODIFIED SWALLOW / DEGLUTITION STUDY CLINICAL HISTORY: Dysphagia. Burning sensation in throat. Difficulty eating solids. History of radiation treatment to the chest 2011. TECHNIQUE: Deglutition study is performed utilizing thin liquid barium, barium thick pudding, and barium coated cracker. Total dose area product (DAP) in uGy*m, mGy*cm (or similar): n/p. Total fluoroscopic time 72 seconds. COMPARISON: None. FINDINGS: There is grade 1 anterolisthesis C4 on C5. The oral and pharyngeal phases show satisfactory initiation and propagation with all modalities tested. Normal mastication is seen with solid modalities tested. There is no evidence of penetration or aspiration with any modality tested. No significant pharyngeal residue was appreciated. IMPRESSION: No aspiration identified. Please refer to speech therapist notes for further details if necessary. [facility], , 08/04/2024 1:51 PM Download Expand Download MTDD
== END | disposition home or self-care (01) ==
LOC: RADFLMAIN 12:24
PROVIDERS: ATTEND Internal Medicine
DX: R13.10 Dysphagia, unspecified (principal); R12 Heartburn
CPT/HCPCS: 74230